=== PATIENT | female | born 1980 | race African-American/Black ===

== ENCOUNTER → 2017-12-06 09:32 | Outpatient (CLI) | payer BC, SELFPAY ==
--- NOTE | 2017-12-06 | XR_ITS ---
XR chest 2V Ordering Physician: Sixto Jasso MD Patient Age: 37 years: Female HISTORY: ITS.REASON: POSITIVE QUANTIFERON-TB GOLD TEST, COUGH TECHNIQUE: PA and lateral chest COMPARISON :No previous relevant studies FINDINGS . The lungs appear well expanded and clear. A specifically with given history the apices & upper lung vicente clear and unremarkable. On PA film is slight increased density towards lung bases reflects combination of findings. Patient overlying breast density as well as slight inward directed lower sternum (perhaps reflecting partial minimal expression mild pectus excavatum change). Also patient had roto- dextroscoliosis of the spine with slight straightening and slight reversal of the thoracic curvature on lateral projection. These features all combine slightly accentuate density towards the lung bases right more so than left, and likely account for appearance here with no good evidence of active infiltrate.. The heart lucía and mediastinal structures are satisfactory. Ribs and chest wall unremarkable. IMPRESSION: No active disease Lungs clear with nothing definitely acute. Moderate dextro scoliosis mid T-spine.
== END ==
PROVIDERS: Visit Provider Internal Medicine Adolescent Medicine
DX: R76.12 Nonspecific reaction to cell mediated immunity measurement of gamma interferon antigen response without active tuberculosis (principal); R05 Cough
CPT/HCPCS: 71046

== ENCOUNTER → 2017-12-23 10:24 | Outpatient (CLI) | payer BC, SELFPAY ==
--- NOTE | 2017-12-23 10:41 | MR_ITS ---
MR angio head wo con CLINICAL INDICATION: ITS.REASON: BRUIT OF LEFT CAROTID, MIGAINE NOS ORDERING PHYSICIAN: Sixto Jasso MD PATIENT AGE: 37 years Comparison: None TECHNIQUE: 3-D [id number] images are obtained of the intracranial vessels with caudad and 3-D reformatted images reviewed. Single shot MRV images also performed FINDINGS: No aneurysm, AVM, or major intracranial occlusive process evident. Single shot a moderately shows no evidence of superior sagittal sinus thrombosis. IMPRESSION: No evidence of aneurysm AVM or major intracranial process.
[2017-12-23 10:54] LABS: Basophils # 0.1 K/mm3 (0-0.2); Basophils % 0.6 % (0.1-2.0); Eosinophils # 0.2 K/mm3 (0.0-0.4); Eosinophils % 3.3 % (0.1-12.0); Hematocrit 38.3 % (37.0-47.0); Hemoglobin 12.8 g/dL (12.2-16.2); Lymphocytes # 2.7 K/mm3 (0.7-4.5); Lymphocytes % 37.3 K/mm3 (10-50); Mean Corpuscular HGB Conc 33.5 g/dL (31.8-35.4); Mean Corpuscular Hemoglobin 28.4 pg (27.0-31.2); Mean Corpuscular Volume 84.9 fl (81-99); Mean Platelet Volume 6.7 fl (7.4-10.4); Monocytes # 0.4 K/mm3 (0.1-1.0); Monocytes % 5.7 % (1.7-9.3); Neutrophils # 3.8 K/mm3 (1.8-7.8); Neutrophils % 53.1 % (37.0-80.0); Platelet Count 390 K/mm3 (142-424); Red Blood Count 4.52 M/mm3 (4.20-5.40); Red Cell Distribution Width 13.2 % (11.5-17.5); White Blood Count 7.2 K/mm3 (4.8-10.8)
[2017-12-23 13:31] LABS: Alanine Aminotransferase 19 U/L (12-78); Albumin Level 3.6 gm/dL (3.4-5.0); Albumin/Globulin Ratio 1.2 (1.1-1.8); Alkaline Phosphatase 68 U/L (46-116); Anion Gap 13.7 mEq/L (5-15); Aspartate Amino Transferase 26 U/L (15-37); Bilirubin,Total 0.3 mg/dL (0.2-1.0); Blood Urea Nitrogen 10 mg/dL (7-18); Calcium 9.6 mg/dL (8.5-10.1); Carbon Dioxide 27 mmol/L (21.0-32.0); Chloride 106 mmol/L (98-107); Estimated Glomerular Filt Rate 80 ml/min (>60); GFR (African American) 97 ML/MIN (>60); Globulin 3.1 gm/dl (1.3-3.2); Glucose 96 mg/dL (74-106); Potassium 3.7 mmoL/L (3.5-5.1); Sodium 143 mmol/L (136-145); Total Protein,Serum 6.7 gm/dL (6.4-8.2)
== END ==
PROVIDERS: Family Provider Internal Medicine Adolescent Medicine; PCP Internal Medicine Adolescent Medicine; Visit Provider Internal Medicine Adolescent Medicine
DX: R76.12 Nonspecific reaction to cell mediated immunity measurement of gamma interferon antigen response without active tuberculosis (principal); R05 Cough
CPT/HCPCS: 36415; 70544; 80053; 85025; 86480

== ENCOUNTER → 2018-10-02 09:12 | Outpatient (CLI) | payer BC, SELFPAY ==
[2018-10-02 10:25] LABS: Alanine Aminotransferase 31 U/L (12-78); Albumin Level 3.2 gm/dL (3.4-5.0); Albumin/Globulin Ratio 0.9 (1.1-1.8); Alkaline Phosphatase 72 U/L (46-116); Anion Gap 10.4 mEq/L (5-15); Aspartate Amino Transferase 20 U/L (15-37); Bilirubin,Total 0.4 mg/dL (0.2-1.0); Blood Urea Nitrogen 7 mg/dL (7-18); Calcium 8.7 mg/dL (8.5-10.1); Carbon Dioxide 29 mmol/L (21.0-32.0); Chloride 105 mmol/L (98-107); Creatinine,Serum 0.83 mg/dL (0.55-1.02); Estimated Glomerular Filt Rate 76 ml/min (>60); GFR (African American) 92 ML/MIN (>60); Globulin 3.7 gm/dl (1.3-3.2); Glucose 102 mg/dL (74-106); Potassium 4.4 mmoL/L (3.5-5.1); Sodium 140 mmol/L (136-145); Total Protein,Serum 6.9 gm/dL (6.4-8.2)
== END ==
PROVIDERS: Visit Provider Nurse Practitioner Family
DX: R76.11 Nonspecific reaction to tuberculin skin test without active tuberculosis (principal)
CPT/HCPCS: 36415; 80053

== ENCOUNTER → 2018-11-06 17:11 | Outpatient (CLI) | payer BC, SELFPAY ==
[2018-11-06 17:53] LABS: Alanine Aminotransferase 31 U/L (12-78); Albumin Level 3.6 gm/dL (3.4-5.0); Albumin/Globulin Ratio 0.9 (1.1-1.8); Alkaline Phosphatase 81 U/L (46-116); Anion Gap 13.2 mEq/L (5-15); Aspartate Amino Transferase 20 U/L (15-37); Bilirubin,Total 0.3 mg/dL (0.2-1.0); Blood Urea Nitrogen 14 mg/dL (7-18); Calcium 9.3 mg/dL (8.5-10.1); Carbon Dioxide 30 mmol/L (21.0-32.0); Chloride 105 mmol/L (98-107); Creatinine,Serum 0.89 mg/dL (0.55-1.02); Estimated Glomerular Filt Rate 70 ml/min (>60); GFR (African American) 85 ML/MIN (>60); Globulin 3.8 gm/dl (1.3-3.2); Glucose 99 mg/dL (74-106); Potassium 4.2 mmoL/L (3.5-5.1); Sodium 144 mmol/L (136-145); Total Protein,Serum 7.4 gm/dL (6.4-8.2)
== END ==
PROVIDERS: Visit Provider Nurse Practitioner Family
DX: R76.11 Nonspecific reaction to tuberculin skin test without active tuberculosis (principal)
CPT/HCPCS: 36415; 80053

== ENCOUNTER → 2018-12-11 17:43 | Outpatient (CLI) | payer BC, SELFPAY ==
[2018-12-11 19:47] LABS: Alanine Aminotransferase 34 U/L (12-78); Albumin Level 3.7 gm/dL (3.4-5.0); Alkaline Phosphatase 75 U/L (46-116); Anion Gap 14.7 mEq/L (5-15); Aspartate Amino Transferase 20 U/L (15-37); Bilirubin,Total 0.4 mg/dL (0.2-1.0); Blood Urea Nitrogen 10 mg/dL (7-18); Calcium 9.2 mg/dL (8.5-10.1); Carbon Dioxide 25 mmol/L (21.0-32.0); Chloride 101 mmol/L (98-107); Creatinine,Serum 0.86 mg/dL (0.55-1.02); Estimated Glomerular Filt Rate 73 ml/min (>60); GFR (African American) 88 ML/MIN (>60); Globulin 3.6 gm/dl (1.3-3.2); Glucose 95 mg/dL (74-106); Potassium 3.7 mmoL/L (3.5-5.1); Sodium 137 mmol/L (136-145); Total Protein,Serum 7.3 gm/dL (6.4-8.2)
== END ==
PROVIDERS: Visit Provider Nurse Practitioner Family
DX: R76.11 Nonspecific reaction to tuberculin skin test without active tuberculosis (principal)
CPT/HCPCS: 36415; 80053

== ENCOUNTER → 2019-02-12 17:07 | Outpatient (CLI) | payer BC, SELFPAY ==
[2019-02-12 18:05] LABS: Alanine Aminotransferase 53 U/L (12-78); Albumin Level 3.4 gm/dL (3.4-5.0); Alkaline Phosphatase 75 U/L (46-116); Anion Gap 14.9 mEq/L (5-15); Aspartate Amino Transferase 32 U/L (15-37); Bilirubin,Total 0.3 mg/dL (0.2-1.0); Blood Urea Nitrogen 12 mg/dL (7-18); Calcium 9.2 mg/dL (8.5-10.1); Carbon Dioxide 25 mmol/L (21.0-32.0); Chloride 103 mmol/L (98-107); Estimated Glomerular Filt Rate 69 ml/min (>60); GFR (African American) 84 ML/MIN (>60); Globulin 3.3 gm/dl (1.3-3.2); Glucose 92 mg/dL (74-106); Potassium 3.9 mmoL/L (3.5-5.1); Sodium 139 mmol/L (136-145); Total Protein,Serum 6.7 gm/dL (6.4-8.2)
== END ==
PROVIDERS: Visit Provider Nurse Practitioner Family
DX: R76.11 Nonspecific reaction to tuberculin skin test without active tuberculosis (principal)
CPT/HCPCS: 36415; 80053

== ENCOUNTER → 2019-04-14 09:15 | Outpatient (CLI) | payer BC, SELFPAY ==
[2019-04-14 09:49] LABS: Basophils # 0.1 K/mm3 (0-0.2); Basophils % 0.6 % (0.1-2.0); Eosinophils # 0.2 K/mm3 (0.0-0.4); Eosinophils % 2.7 % (0.1-12.0); Hematocrit 37.7 % (37.0-47.0); Hemoglobin 12.4 g/dL (12.2-16.2); Lymphocytes # 2.2 K/mm3 (0.7-4.5); Lymphocytes % 29.1 % (10-50); Mean Corpuscular HGB Conc 32.8 g/dL (31.8-35.4); Mean Corpuscular Volume 85.4 fl (81-99); Mean Platelet Volume 6.1 fl (7.4-10.4); Monocytes # 0.6 K/mm3 (0.1-1.0); Monocytes % 8.2 % (1.7-9.3); Neutrophils # 4.4 K/mm3 (1.8-7.8); Neutrophils % 59.3 % (37.0-80.0); Platelet Count 312 K/mm3 (142-424); Red Blood Count 4.42 M/mm3 (4.20-5.40); Red Cell Distribution Width 13.5 % (11.5-17.5); White Blood Count 7.4 K/mm3 (4.8-10.8)
[2019-04-14 11:13] LABS: Alanine Aminotransferase 30 U/L (12-78); Albumin Level 3.3 gm/dL (3.4-5.0); Alkaline Phosphatase 82 U/L (46-116); Anion Gap 11.4 mEq/L (5-15); Aspartate Amino Transferase 23 U/L (15-37); Bilirubin,Total 0.2 mg/dL (0.2-1.0); Blood Urea Nitrogen 11 mg/dL (7-18); Calcium 8.8 mg/dL (8.5-10.1); Carbon Dioxide 29 mmol/L (21.0-32.0); Chloride 105 mmol/L (98-107); Creatinine,Serum 0.76 mg/dL (0.55-1.02); Estimated Glomerular Filt Rate 84 ml/min (>60); GFR (African American) 102 ML/MIN (>60); Globulin 3.2 gm/dl (1.3-3.2); Glucose 92 mg/dL (74-106); Potassium 4.4 mmoL/L (3.5-5.1); Sodium 141 mmol/L (136-145); Total Protein,Serum 6.5 gm/dL (6.4-8.2)
== END ==
PROVIDERS: Visit Provider Nurse Practitioner Family
DX: R76.11 Nonspecific reaction to tuberculin skin test without active tuberculosis (principal)
CPT/HCPCS: 36415; 80053; 85025

== ENCOUNTER → 2019-07-12 07:19 | Outpatient (CLI) | payer BC, SELFPAY ==
[2019-07-12 07:49] LABS: Basophils % 0.6 % (0.1-2.0); Eosinophils # 0.2 K/mm3 (0.0-0.4); Eosinophils % 2.7 % (0.1-12.0); Hematocrit 38.3 % (37.0-47.0); Hemoglobin 12.6 g/dL (12.2-16.2); Lymphocytes % 30.8 % (10-50); Mean Corpuscular Hemoglobin 28.3 pg (27.0-31.2); Mean Corpuscular Volume 85.9 fl (81-99); Mean Platelet Volume 7.6 fl (7.4-10.4); Monocytes # 0.3 K/mm3 (0.1-1.0); Monocytes % 5.3 % (1.7-9.3); Neutrophils # 3.9 K/mm3 (1.8-7.8); Neutrophils % 60.6 % (37.0-80.0); Platelet Count 340 K/mm3 (142-424); Red Blood Count 4.45 M/mm3 (4.20-5.40); Red Cell Distribution Width 13.2 % (11.5-17.5); White Blood Count 6.4 K/mm3 (4.8-10.8)
[2019-07-12 08:24] LABS: Alanine Aminotransferase 25 U/L (12-78); Albumin Level 3.3 gm/dL (3.4-5.0); Alkaline Phosphatase 82 U/L (46-116); Anion Gap 15.7 mEq/L (5-15); Aspartate Amino Transferase 22 U/L (15-37); Bilirubin,Total 0.4 mg/dL (0.2-1.0); Blood Urea Nitrogen 8 mg/dL (7-18); Calcium 8.9 mg/dL (8.5-10.1); Carbon Dioxide 26 mmol/L (21.0-32.0); Chloride 104 mmol/L (98-107); Creatinine,Serum 0.86 mg/dL (0.55-1.02); Estimated Glomerular Filt Rate 73 ml/min (>60); GFR (African American) 88 ML/MIN (>60); Globulin 3.4 gm/dl (1.3-3.2); Glucose 88 mg/dL (74-106); Potassium 3.7 mmoL/L (3.5-5.1); Sodium 142 mmol/L (136-145); Total Protein,Serum 6.7 gm/dL (6.4-8.2)
== END ==
PROVIDERS: Visit Provider Nurse Practitioner Family
DX: R76.11 Nonspecific reaction to tuberculin skin test without active tuberculosis (principal)
CPT/HCPCS: 36415; 80053; 85025

== ENCOUNTER → 2019-09-14 08:14 | Outpatient (CLI) | payer BC, SELFPAY ==
[2019-09-14 09:04] LABS: Basophils # 0.1 K/mm3 (0-0.2); Basophils % 0.8 % (0.1-2.0); Eosinophils # 0.2 K/mm3 (0.0-0.4); Eosinophils % 2.6 % (0.1-12.0); Hematocrit 38.2 % (37.0-47.0); Hemoglobin 12.5 g/dL (12.2-16.2); Lymphocytes # 2.1 K/mm3 (0.7-4.5); Lymphocytes % 36.1 % (10-50); Mean Corpuscular HGB Conc 32.6 g/dL (31.8-35.4); Mean Corpuscular Hemoglobin 27.9 pg (27.0-31.2); Mean Corpuscular Volume 85.5 fl (81-99); Mean Platelet Volume 7.4 fl (7.4-10.4); Monocytes # 0.3 K/mm3 (0.1-1.0); Monocytes % 4.3 % (1.7-9.3); Neutrophils # 3.3 K/mm3 (1.8-7.8); Neutrophils % 56.2 % (37.0-80.0); Platelet Count 373 K/mm3 (142-424); Red Blood Count 4.47 M/mm3 (4.20-5.40); Red Cell Distribution Width 13.5 % (11.5-17.5); White Blood Count 5.9 K/mm3 (4.8-10.8)
[2019-09-14 11:36] LABS: Alanine Aminotransferase 30 U/L (12-78); Albumin Level 3.6 gm/dL (3.4-5.0); Albumin/Globulin Ratio 1.1 (1.1-1.8); Alkaline Phosphatase 82 U/L (46-116); Anion Gap 15.2 mEq/L (5-15); Aspartate Amino Transferase 20 U/L (15-37); Bilirubin,Total 0.3 mg/dL (0.2-1.0); Blood Urea Nitrogen 12 mg/dL (7-18); Calcium 8.8 mg/dL (8.5-10.1); Carbon Dioxide 25 mmol/L (21.0-32.0); Chloride 106 mmol/L (98-107); Creatinine,Serum 0.85 mg/dL (0.55-1.02); Estimated Glomerular Filt Rate 74 ml/min (>60); GFR (African American) 89 ML/MIN (>60); Globulin 3.2 gm/dl (1.3-3.2); Glucose 94 mg/dL (74-106); Potassium 4.2 mmoL/L (3.5-5.1); Sodium 142 mmol/L (136-145); Total Protein,Serum 6.8 gm/dL (6.4-8.2)
== END ==
PROVIDERS: Visit Provider Nurse Practitioner Family
DX: R76.11 Nonspecific reaction to tuberculin skin test without active tuberculosis (principal)
CPT/HCPCS: 36415; 80053; 85025

== ENCOUNTER → 2019-12-24 08:56 | Outpatient (CLI) | payer BC, SELFPAY ==
--- NOTE | 2019-12-24 09:04 | XR_ITS ---
PROCEDURE: XR FOOT WT BEARING LT 3V CLINICAL INDICATION: pain COMPARISON: No exams were available for comparison FINDINGS: No fracture or dislocation. No lytic or blastic change. There is normal mineralization. The joint spaces are well-preserved. No significant degenerative/arthritic changes. No erosive changes evident. Other findings:None. IMPRESSION: No acute findings. Dictated by: Mario Frazier MD 12/24/2019 17:46 Electronically signed by Mario Frazier MD in [place] 12/24/2019 17:46
--- NOTE | 2019-12-24 09:04 | XR_ITS ---
PROCEDURE: XR FOOT WT BEARING RT 3V CLINICAL INDICATION: pain COMPARISON: No exams were available for comparison FINDINGS: No fracture or dislocation. No lytic or blastic change. There is normal mineralization. The joint spaces are well-preserved. No significant degenerative/arthritic changes. No erosive changes evident. Other findings:None. IMPRESSION: No acute findings. Dictated by: Mario Frazier MD 12/24/2019 17:46 Electronically signed by Mario Frazier MD in [facility] 12/24/2019 17:46
== END ==
PROVIDERS: PCP Internal Medicine Adolescent Medicine; Visit Provider Podiatrist
DX: M79.672 Pain in left foot (principal); M79.671 Pain in right foot
CPT/HCPCS: 73630

== ENCOUNTER → 2021-08-30 16:22 | Outpatient (CLI) | payer BC, SELFPAY | PROVIDERS: Visit Provider Nurse Practitioner | DX: Z20.822 Contact with and (suspected) exposure to COVID-19 (principal) | CPT/HCPCS: C9803; U0003; U0005 ==

== ENCOUNTER → 2023-07-15 08:19 | Outpatient (CLI) | payer BC, SELFPAY ==
--- NOTE | 2023-07-15 08:23 | XR_ITS ---
FINAL REPORT CLINICAL HISTORY: right ctr COMPARISON: None FINDINGS: RIGHT WRIST Three views demonstrate no acute fracture or dislocation. The visualized joint spaces are normally aligned. The soft tissues are unremarkable. There is mild degenerative change involving the radial aspect of the wrist. IMPRESSION: No acute bony abnormality. Mild degenerative change. Reviewed, Interpreted and Dictated by Shakir Palomares III, MD Transcribed by Jinny Woods Authenticated and [facility]
== END ==
PROVIDERS: PCP Internal Medicine Adolescent Medicine; Visit Provider Orthopaedic Surgery
DX: M25.531 Pain in right wrist (principal)
CPT/HCPCS: 73110

== ENCOUNTER → 2023-08-13 10:03 | Outpatient (CLI) | payer BC, SELFPAY | PROVIDERS: PCP Nurse Practitioner Family; Visit Provider Nurse Practitioner Family | DX: G47.33 Obstructive sleep apnea (adult) (pediatric) (principal); G47.00 Insomnia, unspecified; G43.009 Migraine without aura, not intractable, without status migrainosus; F41.8 Other specified anxiety disorders | CPT/HCPCS: G0399 ==

== ENCOUNTER 2024-01-08 14:46 | Outpatient (CLI) | payer BC, MEDICAID, SELFPAY ==
--- NOTE | 2024-01-08 14:49 | XR_ITS ---
FINAL REPORT CLINICAL HISTORY: Lt shoulder x few months COMPARISON: None FINDINGS: Two views show no evidence of acute displaced fracture or dislocation of the visualized bony architecture. The joint spaces appear normal. IMPRESSION: Unremarkable exam. Reviewed, Interpreted and Dictated by Kimberly Lozano MD Transcribed by Jinny Woods Authenticated and [facility]
== END 2024-01-08 23:59 | disposition home or self-care (01) ==
LOC: RAD 14:47
PROVIDERS: PCP Internal Medicine Adolescent Medicine; Visit Provider Physician Assistant
DX: M25.512 Pain in left shoulder (principal)
CPT/HCPCS: 73030

== ENCOUNTER 2024-01-21 15:25 | Outpatient (CLI) | payer BC, MEDICAID, SELFPAY ==
--- NOTE | 2024-01-21 15:25 | MR_ITS ---
FINAL REPORT CLINICAL HISTORY: Lt Shoulder Pain FINDINGS: Multiplanar MR imaging of the left shoulder was performed without contrast. Many of the images are degraded by motion artifact. The tendons of the rotator cuff are intact without evidence of rotator cuff tear. There is mild AC joint arthrosis. A small amount of fluid is present in the subacromial/subdeltoid bursa. There is abnormal signal in the superior labrum seen on coronal T2 image 16. This is worrisome for a focal SLAP tear but could possibly represent a sublabral foramen as a variant. The long head of the biceps tendon is intact. No significant glenohumeral joint effusion is seen. There is no evidence of fracture or dislocation. The musculature is intact. There is no evidence of soft tissue mass. IMPRESSION: No evidence of rotator cuff tear. Findings worrisome for a focal SLAP tear. Fluid in the subacromial/subdeltoid bursa may represent bursitis. Authenticated and [facility]
== END 2024-01-21 23:59 | disposition home or self-care (01) ==
LOC: RAD 15:25
PROVIDERS: PCP Internal Medicine Adolescent Medicine; Visit Provider Physician Assistant
DX: M25.512 Pain in left shoulder (principal)
CPT/HCPCS: 73221

== ENCOUNTER 2024-10-22 11:24 | Outpatient (CLI) | payer BC, SELFPAY ==
[2024-10-22 12:03] LABS: Basophils # 0.1 K/mm3 (0-0.2); Basophils % 0.8 % (0.1-2.0); Eosinophils # 0.1 K/mm3 (0.0-0.4); Eosinophils % 1.1 % (0.1-12.0); Hematocrit 37.4 % (37.0-47.0); Lymphocytes # 2.6 K/mm3 (0.7-4.5); Lymphocytes % 35.9 % (10-50); Mean Corpuscular HGB Conc 32.1 g/dL (31.8-35.4); Mean Corpuscular Hemoglobin 25.2 pg (27.0-31.2); Mean Corpuscular Volume 78.4 fl (81-99); Monocytes # 0.6 K/mm3 (0.1-1.0); Monocytes % 8.3 % (1.7-9.3); Neutrophils % 53.6 % (37.0-80.0); Platelet Count 417 K/mm3 (142-424); Red Blood Count 4.77 M/mm3 (4.20-5.40); Red Cell Distribution Width 16.3 % (11.5-17.5); White Blood Count 7.4 K/mm3 (4.8-10.8)
[2024-10-22 12:28] LABS: Alanine Aminotransferase 27 U/L (12-78); Albumin/Globulin Ratio 1.4 (1.1-1.8); Alkaline Phosphatase 95 U/L (38-126); Anion Gap 10.3 mEq/L (5-15); Aspartate Amino Transferase 28 U/L (14-36); Bilirubin,Total 0.2 mg/dl (0.2-1.3); Blood Urea Nitrogen 10 mg/dl (7-17); Calcium 9.5 mg/dl (8.4-10.2); Carbon Dioxide 27 mmol/L (22.0-30.0); Chloride 106 mmol/L (98-107); Chol/HDL Ratio 3.1 (1-3.5); Cholesterol 205 mg/dl (140-200); Estimated Glomerular Filt Rate 48 ml/min (>60); GFR (African American) 59 ML/MIN (>60); Globulin 2.8 g/dL (1.3-3.2); Glucose 97 mg/dl (74-100); HDL Cholesterol 66 mg/dl (40-60); Potassium 4.3 mmoL/L (3.5-5.1); Sodium 139 mmol/L (136-145); Total Protein,Serum 6.8 g/dl (6.3-8.2); Triglycerides 86 mg/dl (30-150); VLDL Cholesterol 17 mg/dL (0-40)
[2024-10-22 12:39] LABS: Direct LDL Cholesterol 105.92 mg/dL (100-129)
[2024-10-22 12:44] LABS: 25-OH Vitamin D, Total 80.1 ng/mL (30-100)
== END 2024-10-22 23:59 | disposition home or self-care (01) ==
LOC: LAB 11:24
PROVIDERS: PCP Internal Medicine Adolescent Medicine; Visit Provider Nurse Practitioner Family
DX: G43.009 Migraine without aura, not intractable, without status migrainosus (principal); E55.9 Vitamin D deficiency, unspecified; E78.5 Hyperlipidemia, unspecified
CPT/HCPCS: 36415; 80053; 80061; 82306; 85025

== ENCOUNTER 2025-04-04 13:17 | Outpatient (CLI) | payer BC, SELFPAY ==
--- NOTE | 2025-04-04 13:17 | XR_ITS ---
FINAL REPORT TECHNIQUE: 4 views left shoulder CLINICAL HISTORY: left shoulder pain COMPARISON: None FINDINGS: Four views of the left shoulder were obtained. There is no fracture or dislocation. Mild degenerative joint disease is present. Soft tissues are unremarkable. IMPRESSION: No acute osseous abnormality of the left shoulder. Reviewed, Interpreted and Dictated by Dominique La MD Transcribed by Jinny Woods Authenticated and [facility]
--- OUTSIDE RECORDS SUMMARY | 2025-04-04 13:20 | XMS_ITS | Clinical Summary ---
Author Organization Healthcare Address [address] [place] [address] Care Team Providers Care Pony Ride Attendant Name Role Phone Pcp, No Primary Care Provider Unavailabl e Allergies Active Allergy Reactions Criticality Noted Date Comments Cefuroxime Other - please document in the comment field Low 10/11/2021 Severe GI symptoms - nausea/vomiting, diarrhea Prochlorperazine Other - please document in the comment field Low 10/11/2021 Family history of seizures when taking Compazine Tetanus Antitoxin Other - please document in the comment field High 10/11/2021 Severe arm swelling, fever, ecchymosis Medications * This document contains information received from the source organization and may not represent a complete record from that organization. loratadine (Claritin) 10 MG tablet Take 10 mg by mouth 1 (one) time each day. Active cetirizine (ZyrTEC) 10 MG tablet Take 10 mg by mouth 1 (one) time each day. Active fluticasone (Flonase) 50 MCG/ACT nasal spray Administer 1 spray into each nostril 2 (two) times a day. Shake gently. Before first use, prime pump. After use, clean tip and replace cap. Active Olopatadine HCl (PATADAY OP) Administer into affected eye(s). Active verapamil (Calan) 120 MG tablet Take 120 mg by mouth 1 (one) time each day. Active ubrogepant (Ubrelvy) 100 MG tablet Take 100 mg by mouth 1 (one) time if needed for migraine. After 2 hours, a second dose may be taken if needed. Maximum dose: 200 mg in 24-hour period. Active ondansetron ODT (Zofran-ODT) 4 MG disintegrating tablet Take 4 mg by mouth every 8 (eight) hours if needed for nausea or vomiting. Active amitriptyline (Elavil) 25 MG tablet Take 1 tablet (25 mg) by mouth every night. Active albuterol 108 (90 Base) MCG/ACT inhaler Inhale 2 puffs 4 (four) times a day. Active busPIRone (Buspar) 10 MG tablet Take by mouth 3 (three) times a day. Active cariprazine (Vraylar) 1.5 MG capsule Take by mouth 1 (one) time each day. Active cholecalciferol (Vitamin D-3) 50 MCG (2000 UT) capsule Take 1 capsule (2,000 Units) by mouth. Active cyclobenzaprine (Flexeril) 10 MG tablet Take 1 tablet (10 mg) by mouth 3 (three) times a day if needed for muscle spasms. Active diclofenac (Voltaren) 1 % topical gel Place on the skin 2 (two) times a day. Apply as directed to affected area Active escitalopram (Lexapro) 20 MG tablet Take 1 tablet (20 mg) by mouth 1 (one) time each day. Active meloxicam (Mobic) 7.5 MG tablet Take 1 tablet (7.5 mg) by mouth 1 (one) time each day. Active montelukast (Singulair) 10 MG tablet Take 1 tablet (10 mg) by mouth every night. Active Encounters Date Type Department Care Team Description 03/07/2025 Telephone [facility]facial Pain Clinic Orofacial [facility] Clinic [facility] Room [address] [phone] Aby Marr from Last 3 Months Immunizations Immunization Administration Dates Next Due Hep A, Adult 08/29/2018,02/21/2018 Hep B, adult 10/11/2021 Influenza, injectable, quadrivalent 06/13/2018 Influenza, injectable, quadrivalent, preservativ e free 05/09/2021,05/18/2019 Influenza, recombinant, quad rivalent, injectable, preservative free 04/26/2020 Influenza, seasonal, injectable, preservative fr ee 10/14/2016 Tdap 07/14/2020 Family History Medical History Relation Name Comments Arthritis Father Doyle Diabetes Father Doyle Arthritis Mother Mayda Diabetes Mother Mayda Heart disease Mother Mayda Diabetes Sister Debi Relation Name Status Comments Father Doyle Mother Mayda Carrera Social History Tobacco Use Types Packs/Day Years Used Date Smoking Tobacco: Never Smokeless Tobacco: Never Tobacco Cessation:Counseling Given: Not Answered Alcohol Use Standard Drinks/Week Comments Yes 1 (1 standard drink = 0.6 oz pur e alcohol) Occasionally wine Comments Unknown Sex and Gender Information Value Date Recorded Sex Assigned at Female 09/08/2024 3:25 PM EST Legal Sex Female 8:50 PM EDT Gender Identity Female 09/08/2024 3:25 PM EST Sexual Orientation Straight 09/08/2024 3: 25 PM EST Last Filed Vital Signs Vital Sign Reading Time Taken Comments Blood Pressure 136/93 09/09/2024 3:10 PM EST Pulse 124 09/09/2024 3:01 PM EST Temperature 36.3 C (97.3 F) 09/09/2024 3:01 PM EST Respiratory Rate - - Oxygen Saturation 98% 09/09/2024 3:01 PM EST Inhaled Oxygen Concentration - - Weight 164 kg (361 lb 9.6 oz) 09/09/2024 3:01 PM EST Height 170.2 cm (5' 7 ) 09/09/2024 3:01 PM EST Body Mass Index 56.63 09/09/2024 3:01 PM EST Plan of Treatment Upcoming Encounters Date Type Department Care Team (Late st Contact Info) Description 04/26/2025 11:00 AM EDT Office Visit [facility] Orofacial Pain Clinic Orofacial Pain [facility] Room [place] [address] [place] [address] Kieran Miles DDS [address] [phone] Cristina Stone 05/31/2025 11:00 AM EDT Office Visit [facility] Clinic Orofacial [facility] Room [place] [place] [phone] Kieran Miles DDS [address] [address] Health Maintenance Due Date Last Done Comments Dental Oral Exam 1978 Dental Prophylaxis 1978 Dental X-Ray: Bitewings 1978 Dental X-Ray: Full Mouth 1978 [facility]-Depression Screening 1978 [facility]-HIV Screening 1978 [facility]-Hepatitis C Screening 1978 [facility]-/Child/Adol SDOH Screenings 1978 [facility]- SDOH Screenings 1996 [facility]-Adult SDOH Screenings 1996 [facility]-Pap Smear 1999 [facility]-Cervical Cancer Screening 2008 [facility]-HPV/Cotest 2008 [facility]-Hepatitis B Vaccines (2 of 3 - 19+ 3-dose series) 11/08/2021 10/11/2021 HPV Vaccines (3 - 3-dose SCDM series) 01/14/2023 10/22/2022, 05/10/2022 CT Colonography 2023 Colonoscopy 2023 FIT-DNA 2023 FIT 2023 FOBT 2023 Sigmoidoscopy 2023 [facility]-Colorectal Cancer Screening 2023 [facility]-Influenza Vaccine (#1) 04/11/202506/22, 06/19/2023, 05/10/2022, Additional history exists [facility]-Zoster Vaccines (1 of 2) 2028 [facility]-DTaP,Tdap,and Td Vaccines (2 - Td or Tdap) 07/14/2030 07/14/2020 [facility]-Hepatitis A Vaccines Aged Out 08/29/2018, 02/08 No longer eligible based on patient's age to complete this topic [id number] Vaccine Completed 06/22/2024, 06/19/2023, 08/01/2021, Additional history exists [facility]-Obesity Intervention Completed 09/09/2024 [facility]-HIB Vaccines Aged Out No longer e ligible based on patient's age to complete this topic [facility]-IPV Vaccines Aged Out No longer e ligible based on patient's age to complete this topic [facility]-Pneumococcal Vaccine: Pediatrics (0 to 5 Years) and At-Risk Patients (6 to 49 Years) Aged Out No longer eligible based on patient's age to complete this topic [facility]-Rotavirus Vaccines Aged Out No lo nger eligible based on patient's age to complete this topic Insurance Care Teams Pony Ride Attendant Relationship Specialty Start Date End Date Pcp, [place] [address] PCP - General Family Medicine 10/11/21
--- OUTSIDE RECORDS SUMMARY | 2025-04-04 13:20 | XMS_ITS | Encounter Summary ---
Author Organization Healthcare Address [address] [place] [address] Care Team Providers Care Station Supervisor Name Role Phone Pcp, No Primary Care Provider Unavailabl e Encounter Details Date Type Department Care Team (Late st Contact Info) Description 03/07/2025 Telephone [facility] Orofacial Pain Clinic Orofacial Pain Clinic [facility] Room [address] [place] [address] Aby Marr [facility] [place] [address] Social History Tobacco Use Types Packs/Day Years Used Date Smoking Tobacco: Never Smokeless Tobacco: Never Alcohol Use Standard Drinks/Week Comments Yes 1 (1 standard drink = 0.6 oz pur e alcohol) Occasionally wine Comments Unknown Sex and Gender Information Value Date Recorded Sex Assigned at Female 09/08/2024 3:25 PM EST Legal Sex Female 8:50 PM EDT Gender Identity Female 09/08/2024 3:25 PM EST Sexual Orientation Straight 09/08/2024 3: 25 PM EST documented as of this encounter Miscellaneous Notes * Telephone Encounter - Aby Marr - 03/07/2025 4:18 PM EDT Phone call complete documented in this encounter Plan of Treatment Upcoming Encounters Date Type Department Care Team (Late Contact Info) Description 04/26/2025 11:00 AM EDT Office Visit [facility] Orofacial Pain Clinic Orofacial Pain [facility] [address] [place] [address] Kieran Miles DDS [address] [phone] Cristina Stone 05/31/2025 11:00 AM EDT Office Visit [facility] O[facility]facial Pain Clinic [facility] [address] [place] [address] Kieran Miles DDS [address] [facility] [address] [place] [address] documented as of this encounter Visit Diagnoses Not on filedocumented in this encounter Additional Health Concerns Assessment Noted Time A Body Mass Index follow-up plan has been documented for the patient 09/15/2024 3:13 PM EST documented as of this encounter Care Teams Station Supervisor Relationship Specialty Start Date End Date Pcp, [place] [address] PCP - General Family Medicine 10/11/21 documented as of this encounter
== END 2025-04-04 23:59 ==
LOC: RAD 13:17
PROVIDERS: Visit Provider Physician Assistant
DX: M25.512 Pain in left shoulder (principal)
CPT/HCPCS: 73030

== ENCOUNTER 2025-05-23 08:29 | Outpatient (CLI) | payer BC, SELFPAY ==
--- OUTSIDE RECORDS SUMMARY | 2025-04-26 11:00 | XMS_ITS | Encounter Summary ---
Author Organization Healthcare Address [address] [place] [address] Care Team Providers Care Transit Coach Operator Name Role Phone Pcp, No Primary Care Provider Unavailabl e Encounter Details Date Type Department Care Team (Late st Contact Info) Description 04/26/2025 11:00 AM EDT Office Visit [facility] Orofacial Pain Clinic Orofacial Pain Clinic [facility] [address] [place] [address] Kieran Miles, DDS [address] [place] [address] Cristina Stone FLAQUITA (obstructive sleep apnea) [G47.33] (Primary Dx) Social History Tobacco Use Types Packs/Day Years [...] PM EST documented as of this encounter Last Filed Vital Signs Vital Sign Reading Time Taken Comments Blood Pressure 148/82 04/26/2025 11:18 AM EDT Pulse 75 04/26/2025 11:18 AM EDT Temperature 36.7 C (98.1 F) 04/26/2025 11:18 AM EDT Respiratory Rate - - Oxygen Saturation 98% 04/26/2025 11:18 AM EDT Inhaled Oxygen Concentration - - Weight 159 kg (350 lb) 04/26/2025 11:18 AM EDT Height 170.2 cm (5' 7 ) 04/26/2025 11:18 AM EDT Body Mass Index 54.82 04/26/2025 11:18 AM EDT documented in this encounter Miscellaneous Notes * Progress Notes - ChaseCristina matt - 04/26/2025 11:00 AM EDT Patient returned to the clinic for digital impressions and protrusive record for fabrication of a Panthera X3 sleep appliance for the management of mild obstructive sleep apnea. HPI: Patient reported no changes in her subjective daytime tiredness. Home sleep study on 08/04/2023 revealed an GABBIE average: 8.2 and a minimum oxygen saturation: 85%. These findings were consistent with mild obstructive sleep apnea. General medical history: No changes reported since last appointment Examination: Visit Vitals BP (!) 148/82 Pulse 75 Temp 36.7 ??C (98.1 ??F) Ht 1.702 m (5' 7 ) Wt 159 kg (350 lb) SpO2 98% BMI 54.82 kg/m?? Procedures performed: Patient elected to have a Panthera X3 appliance fabricated. Sylvester Gauge was recorded at 100% of her max protrusive movement at 6mm (recording -5 retrusive to +5 mm protrusive; 10mm range total). Prescription sent electronically to [facility] for X3. 2mm thick bite fork utilized for scans. Midlines are coincidental in MIP. 2mm shift to the left noted at maximum protrusion, verified shiftis physiological and WNL. Midline shift accurately captured in scan. Consent form signed. Digital impression taken using [employer] 5 scanner. STL files [facility] to [facility]\Dept\[employer]\OF Scans. Assessment: Mild obstructive sleep apnea (unmanaged). Plan: Patient will be called to schedule an appointment for delivery upon return of appliance. However patient was assured we are available if needed beforehand. Make AM supply coordinator and sign proof of delivery consent at that appointment. Cosigned by Kieran Miles DDS at 05/09/2025 10:13 PM EDT Associated attestation - Kieran Miles DDS - 05/09/2025 10:13 PM EDT I saw and evaluated the patient with the resident/fellow. I discussed the case with the resident/fellow and agree with the findings and plan as documented. documented in this encounter Plan of Treatment Upcoming Encounters Date Type Department Care Team (Late st Contact Info) Description 05/31/2025 11:00 AM EDT Office Visit [facility] Orofacial Pain Clinic Orofacial Pain Clinic [facility] Room [address] [place] [address] Kieran Miles DDS [address] [phone] Deandra Gasca documented as of this encounter Visit Diagnoses Diagnosis FLAQUITA (obstructive sleep apnea) [G47.33]- Primary Obstructive sleep apnea (adult) (pediatric) documented in this encounter Additional Health Concerns Assessment Noted Time A Body Mass Index follow-up plan has been documented for the patient 05/10/2025 2:23 PM EDT documented as of this encounter Care Teams Transit Coach Operator Relationship Specialty Start [place] [address] PCP - General Family Medicine 10/11/21 documented as of this encounter
--- NOTE | 2025-05-23 08:32 | MM_ITS ---
PROCEDURE INFORMATION: Exam: MG Bilateral Screening 3D Mammography Exam date and time: 05/23/2025 8:37 AM Age: 44 years old Clinical indication: Screening examination TECHNIQUE: Imaging protocol: Bilateral Screening tomosynthesis and 2D mammography including computer-aided detection (CAD) when performed. COMPARISON: No relevant prior studies available. FINDINGS: MAMMOGRAPHY: Breast composition: There are scattered areas of fibroglandular density. Mass: None. Architectural distortion: None. Calcifications: No suspicious calcifications. Asymmetric density: None. Skin thickening: None. Axillary adenopathy: None. IMPRESSION: No mammographic evidence of malignancy. Annual screening is recommended unless otherwise clinically indicated. ASSESSMENT: BI-RADS Category 1: Negative.
--- OUTSIDE RECORDS SUMMARY | 2025-05-23 08:40 | XMS_ITS | Encounter Summary ---
Author Organization Healthcare Address [address] [place] [address] Care Team Providers Care Rent Collector Name Role Phone Pcp, No Primary Care Provider Unavailabl e Encounter Details Date Type Department Care Team (Latest Contact Info) Description 04/19/2025 Travel Social History Tobacco Use Types Packs/Day Years [...] PM EST documented as of this encounter Plan of Treatment Upcoming Encounters Date Type Department Care Team (Late st Contact Info) Description 05/31/2025 11:00 AM EDT Office Visit [facility] O[facility]facial [facility] [address] [place] [address] Kieran Miles, DDS [address] [facility] [address] [place] [address] Deandra Gasca documented as of this encounter Visit Diagnoses Not on filedocumented in this encounter Additional Health Concerns Assessment Noted Time A Body Mass Index follow-up plan has been documented for the patient 09/15/2024 3:13 PM EST documented as of this encounter Care Teams Rent Collector Relationship Specialty Start Date End Date Pcp, [place] [address] PCP - General Family Medicine 10/11/21 documented as of this encounter
--- OUTSIDE RECORDS SUMMARY | 2025-05-23 08:40 | XMS_ITS | Clinical Summary ---
Author Organization [facility] Address [address] [place] [address] Care Team Providers Care Network Internship Name Role Phone Pcp, No Primary Care [...] (10 mg) by mouth every night. Active Active Problems Problem Noted Date Diagnosed Date FLAQUITA (obstructive sleep apnea) 04/26/2025 Encounters Date Type Department Care Team Description 04/26/2025 11:00 AM EDT Office Visit [facility] Orofacial Pain Clinic Orofacial Pain Clinic [facility] [address] [place] [phone] Kieran Miles DDS Kimble, Catherine D FLAQUITA (obstructive sleep apnea) [G47.33] (Primary Dx) 04/26/2025 Travel 04/19/2025 Travel 03/07/2025 Telephone [facility] Orofacial Pain Clinic Orofacial Pain Clinic [facility] [address] [place] [phone] Aby Marr from Last 3 Months Immunizations [...] Name Status Comments Father Doyle Mother Mayda Sister Debi Social History Tobacco Use Types Packs/Day Years [...] Mass Index 54.82 04/26/2025 11:18 AM EDT Plan of Treatment Upcoming Encounters Date Type Department Care Team (Late st Contact Info) Description 05/31/2025 11:00 AM EDT Office Visit [facility] Orofacial Pain Clinic [facility] [address] [place] [phone] Kieran Miles, DDS [address] [place] [address] Deandra Gasca Health Maintenance Due Date Last Done Comments [...] 2023 Sigmoidoscopy 2023 [facility]-Colorectal Cancer Screening 2023 [facility]-Zoster Vaccines (1 of 2) 2028 [facility]-DTaP,Tdap,and Td Vaccines (2 - Td or Tdap) 07/14/2030 07/14/2020 [facility]-Hepatitis A Vaccines Aged Out 08/29/2018, 02/08 No longer eligible based on patient's age to complete this topic [id number] Vaccine Completed 06/22/2024, 06/19/2023, 08/01/2021, Additional history exists [facility]-Influenza Vaccine Completed 04/18/2025 , 06/22/2024, 06/19/2023, Additional history exists [facility]-Obesity Intervention Completed 04/26/2025, 08/13 [facility]-HIB Vaccines Aged Out No longer e [...] patient's age to complete this topic Insurance [employer] Care Teams Network Internship Relationship Specialty Start Date End Date P[place], [place] [address] PCP - General Family Medicine 10/11/21
--- OUTSIDE RECORDS SUMMARY | 2025-05-23 08:40 | XMS_ITS | Encounter Summary ---
Author Organization Healthcare Address [address] [place] [address] Care Team Providers Care Manufacturing Engineering Technician Name Role Phone Pcp, No Primary Care Provider Unavailabl e Encounter Details Date Type Department Care Team (Latest Contact Info) Description 04/26/2025 Travel Social History Tobacco Use Types Packs/Day [...] Description 05/31/2025 11:00 AM EDT Office Visit [facility] [address] [place] [address] Kieran Miles, DDS [address] [facility] [address] [place] [address] Deandra Gasca documented as of this encounter Visit Diagnoses Not on filedocumented in this encounter Additional Health Concerns Assessment Noted Time A Body Mass Index follow-up plan has been documented for the patient 05/10/2025 2:23 PM EDT documented as of this encounter Care Teams Manufacturing Engineering Technician Relationship Specialty Start Date End Date Pcp, No [address] [place] [address] PCP - General Family Medicine 10/11/21 documented as of this encounter
== END 2025-05-23 23:59 | disposition home or self-care (01) ==
LOC: RAD 08:30
PROVIDERS: PCP Nurse Practitioner Family; Visit Provider Nurse Practitioner Family
DX: Z12.31 Encounter for screening mammogram for malignant neoplasm of breast (principal); R92.323 Mammographic fibroglandular density, bilateral breasts
CPT/HCPCS: 77063; 77067

== ENCOUNTER 2025-08-08 17:00 | Outpatient (CLI) | payer BC, SELFPAY ==
--- NOTE | 2025-08-08 | XR_ITS ---
PROCEDURE INFORMATION: Exam: XR Right Knee Exam date and time: 08/08/2025 5:05 PM Age: 45 years old Clinical indication: Pain; Knee; Right TECHNIQUE: Imaging protocol: Radiologic exam of the right knee. Views: 3 views. COMPARISON: CR XR FOOT WT BEARING RT 3V 12/24/2019 9:06 AM FINDINGS: Bones/joints: Mild osteoarthritic spurring at the lateral joint line. 6 mm ossification projects in the posterior central joint space suggesting small intra-articular body. Minimal patellofemoral spurring. Cortical thickening with central lucency and mild local trabecular sclerosis in the medial aspect of the proximal tibial metaphysis may represent variant bony flange at the medial soleus origin, versus old healed fracture or stress reaction. No definite acute features. If locally symptomatic in this region, consider cross-sectional imaging or bone scan to further characterize. Soft tissues: No gross soft tissue abnormalities. IMPRESSION: 1. No evidence of acute fracture or malalignment. 2. Minor osteoarthritic changes. 3. 6 mm intra-articular ossific body in the posterior joint recess. 4. Anatomic variant versus chronic appearing cortically based process in the medial aspect of the proximal tibial metaphysis. Please see differential consideration/recommendations above.
--- OUTSIDE RECORDS SUMMARY | 2025-08-08 17:04 | XMS_ITS | Clinical Summary ---
Author Organization [facility] Address [address] [place] [address] Care Team Providers Care Patient Care Technician Name Role Phone Pcp, No Primary [...] Encounters Date Type Department Care Team Description 07/18/2025 Orders Only [facility] Room [address] [phone] Kieran Miles DDS FLAQUITA (obstructive sleep apnea) (Primary Dx) 07/18/2025 Telephone [facility] Room [place] [address] [place] [phone] Misa Beyer DDS from Last 3 Months Immunizations Immunization Administration [...] 04/26/2025 11:18 AM EDT Plan of Treatment Health Maintenance Due Date Last Done Comments Dental Oral Exam 1978 Dental Prophylaxis 1978 Dental X-Ray: Bitewings 1978 Dental X-Ray: Full Mouth 1978 [facility]-Depression Screening 1978 [facility]-HIV Screening 1978 [facility]-Hepatitis C Screening 1978 [facility]-Infant/Child/Adol SDOH Screenings 1978 [facility]- SDOH Screenings 1996 [facility]-Adult SDOH Screenings 1996 [facility]-Pap Smear 1999 [facility]-Cervical Cancer Screening 2008 [facility]-HPV/Cotest 2008 [facility]-Hepatitis B Vaccines (2 of 3 - 19+ 3-dose series) 11/08/2021 10/11/2021 HPV Vaccines (3 - 3-dose SCDM series) 01/14/2023 10/22/2022, 05/10/2022 CT Colonography 2023 Colonoscopy 2023 FIT-DNA 2023 FIT 2023 FOBT 2023 Sigmoidoscopy 2023 [facility]-Colorectal Cancer Screening 2023 [id number] Vaccine ( - season) 2025 06/22/2024, 06/19/2023, 08/01/2021, Additional history exists [facility]-Zoster Vaccines (1 of 2) 2028 [facility]-DTaP,Tdap,and Td Vaccines (2 - Td or Tdap) 07/14/2030 07/14/2020 [facility]-Hepatitis A Vaccines Aged Out 08/29/2018, 02/08 No longer eligible based on patient's age to complete this topic [facility]-Influenza Vaccine Completed 04/18/2025 , 06/22/2024, 06/19/2023, [...] on patient's age to complete this topic Procedures Procedure Name Priority Date/Time Associated Diagnosis Comments DENTAL LAB Routine 07/23/2025 3:46 PM EST FLAQUITA (obstructive sleep apnea) from Last 3 Months Results * DENTAL LAB (07/23/2025 3:46 PM EST) [facility] 390.00 $ Comment:$390.00 STAS BrarIN [id number] Date 05-13-2025 Accepted? Yes Invoice Split? Yes Kieran Miles DDS DENTAL LAB ORDERABLES Sintia l Result from Last 3 Months Insurance Care Teams Patient Care Technician Relationship Specialty Start Date End Date Devyn, [place] [address] PCP - General Family Medicine 10/11/21
--- OUTSIDE RECORDS SUMMARY | 2025-08-08 17:04 | XMS_ITS | Encounter Summary ---
Author Organization Healthcare Address [address] [place] [address] Care Team Providers Care Claim Review Medical Director Name Role Phone Pcp, No Primary Care Provider Unavailabl e Encounter Details Date Type Department Care Team (Late st Contact Info) Description 07/18/2025 Orders Only [facility] [address] [place] [phone] Kieran Miles, DDS [address] [place] [phone] FLAQUITA (obstructive sleep apnea) (Primary Dx) Social History Tobacco Use Types [...] as of this encounter Plan of Treatment Not on file documented as of this encounter Procedures Procedure Name Priority Date/Time Associated Diagnosis Comments DENTAL LAB Routine 07/23/2025 3:46 PM EST FLAQUITA (obstructive sleep apnea) documented in this encounter Results * DENTAL LAB (07/23/2025 3:46 PM EST) [facility] 390.00 $ Comment:$390.00 STAS BrarIN [id number] Date 05-13-2025 Accepted? Yes Invoice Split? Yes Kieran Miles DDS DENTAL LAB ORDERABLES Sintia l Result documented in this encounter Visit Diagnoses Diagnosis FLAQUITA (obstructive sleep apnea)- Primary Obstructive sleep apnea (adult) (pediatric) documented in this encounter Additional Health Concerns Assessment Noted Time A Body Mass Index follow-up plan has been documented for the patient 05/10/2025 2:23 PM EDT documented as of this encounter Care Teams Claim Review Medical Director Relationship Specialty Start Date End Date Pcp, [place] [address] PCP - General Family Medicine 10/11/21 documented as of this encounter
--- OUTSIDE RECORDS SUMMARY | 2025-08-08 17:04 | XMS_ITS | Encounter Summary ---
Author Organization [facility] Address [address] [place] [address] Care Team Providers Care Senior Functional Analyst Name Role Phone Pcp, No Primary Care Provider Unavailabl e Encounter Details Date Type Department Care Team (Late st Contact Info) Description 07/18/2025 [facility]phone [facility] [address] [place] [phone] Misa Beyer, S [address] [place] [phone] Social History Tobacco Use Types Packs/Day Years [...] encounter Miscellaneous Notes * Telephone Encounter - Phan Mason - 07/18/2025 10:18 AM EST Left Message to call us back to set up an appointment for sleep appliance delivery. documented in this encounter Plan of Treatment Not on file documented as of this encounter Visit Diagnoses Not on filedocumented in this encounter Additional Health Concerns Assessment Noted Time A Body Mass Index follow-up plan has been documented for the patient 05/10/2025 2:23 PM EDT documented as of this encounter Care Teams Senior Functional Analyst Relationship Specialty Start Date End Date Pcp, [place] [address] PCP - General Family Medicine 10/11/21 documented as of this encounter
== END 2025-08-08 23:59 | disposition home or self-care (01) ==
LOC: RAD 17:02
PROVIDERS: PCP Nurse Practitioner Family; Visit Provider Nurse Practitioner Family
DX: M17.11 Unilateral primary osteoarthritis, right knee (principal); M23.41 Loose body in knee, right knee; R93.6 Abnormal findings on diagnostic imaging of limbs
CPT/HCPCS: 73562